=== PATIENT | male | born 1960 | race African-American/Black ===

== ENCOUNTER 2018-04-30 13:27 | Emergency (ER) | payer MEDICARE, MEDICAID ==
[~2018-04-30] VITALS: Ht 188 cm; Wt 100.0 kg
[2018-04-30 14:01] VITALS: BP 153/95
[2018-04-30] MEDS ORDERED: EYE DROPS OD (14:12)
[2018-04-30] MEDS ORDERED: HTN MEDICATION PO (14:12)
[2018-04-30] MEDS ORDERED: NAPR250T4 PO (14:12)
[2018-04-30] MEDS ORDERED: IBUP-2354 PO (14:12)
[2018-04-30] MEDS ORDERED: FLUORESCEIN SODIUM 1 MG STRIP ONE (14:47)
[2018-04-30] MEDS ORDERED: DEXTRAN 70 0.1%/HYPROMELL 0.3% 0.9 ML OPHTHALMIC SOLUTION [PF] OD ONE (16:00)
== END 2018-04-30 16:11 | disposition home or self-care (01) ==
LOC: EMS 13:28
DX: H04.121 Dry eye syndrome of right lacrimal gland (principal); I10 Essential (primary) hypertension; Z79.899 Other long term (current) drug therapy
CPT/HCPCS: 99283

== ENCOUNTER 2018-05-04 13:11 | Emergency (ER) | payer MEDICARE, MEDICAID ==
[~2018-05-04] VITALS: Ht 188 cm; Wt 100.0 kg
[~2018-05-04 13:11] MED LIST: EYE DROPS OD; HTN MEDICATION PO; IBUP-2354 PO; NAPR250T4 PO
[2018-05-04 13:24] VITALS: BP 130/67
== END 2018-05-04 13:57 | disposition home or self-care (01) ==
LOC: EMS 13:12
DX: H57.89 Other specified disorders of eye and adnexa (principal); Z76.0 Encounter for issue of repeat prescription; I10 Essential (primary) hypertension; Z79.899 Other long term (current) drug therapy
CPT/HCPCS: 99282

== ENCOUNTER 2019-06-28 08:49 | Emergency (ER) | payer OTHER ==
[~2019-06-28] VITALS: Ht 182.9 cm; Wt 110.0 kg
[~2019-06-28 08:49] MED LIST changes: +IBUP-2271 PO; -IBUP-2354 PO
[2019-06-28 09:11] VITALS: BP 140/82
== END 2019-06-28 09:27 | disposition home or self-care (01) ==
LOC: EMS 08:49
DX: J06.9 Acute upper respiratory infection, unspecified (principal); I10 Essential (primary) hypertension

== ENCOUNTER 2019-07-04 23:47 | Emergency (ER) | payer OTHER ==
[~2019-07-04] VITALS: Ht 188 cm; Wt 104.0 kg
[~2019-07-04 23:47] MED LIST changes: -IBUP-2271 PO
[2019-07-05 01:30] VITALS: BP 121/81
[2019-07-05 01:46] LABS: BASOPHILS % (AUTO) 1.5 % (0.0-2.0); HEMATOCRIT 39.9 % (41-53); HEMOGLOBIN 13.3 g/dL (13.5-17.5); LYMPHOCYTES # (AUTO) 2.3 K/uL (1.0-4.8); LYMPHOCYTES % (AUTO) 34.2 % (22.0-44.0); MEAN CORPUSCULAR HEMOGLOBIN 29.1 pg (26.0-34.0); MEAN CORPUSCULAR HGB CONC 33.4 G/dL (31.0-37.0); MEAN CORPUSCULAR VOLUME 87 fL (80-100); MONOCYTES # (AUTO) 0.7 K/uL (0.1-1.0); MONOCYTES % (AUTO) 9.7 % (2.0-9.0); NEUTROPHILS # (AUTO) 3.5 K/uL (1.8-7.7); NEUTROPHILS % (AUTO) 51.6 % (40.0-70.0); PLATELET COUNT (AUTO) 216 K/uL (150-450); RED BLOOD CELL COUNT(AUTO) 4.57 MIL/uL (4.50-5.90); RED CELL DISTRIBUTION WIDTH 13.4 % (11.5-14.5)
[2019-07-05 01:59] LABS: ANION GAP 8 mmol/L (8-16); CARBON DIOXIDE 28 mmol/L (22-29); CHLORIDE 104 mmol/L (98-107); CREATININE 0.93 mg/dL (0.60-1.30); GLOMERULAR FILTR. RATE CALC > 60 mL/min (>60); GLUCOSE,RANDOM 92 mg/dL (70-110); PROTHROMBIN TIME 10.1 SEC (9.4-11.6); SODIUM SERUM 140 mmol/L (136-145); UREA NITROGEN, BLOOD 16 mg/dL (7-18)
[2019-07-05 02:05] LABS: ALANINE AMINOTRANSFERASE 25 U/L (12-78); ALBUMIN 3.3 g/dL (3.4-5.0); ALKALINE PHOSPHATASE 55 U/L (46-116); ASPARTATE AMINOTRANSFERASE 18 U/L (15-37); BILIRUBIN,TOTAL 0.2 mg/dL (0.1-1.0)
== END 2019-07-05 02:01 | disposition home or self-care (01) ==
LOC: EMS 23:48
DX: D17.1 Benign lipomatous neoplasm of skin and subcutaneous tissue of trunk (principal); I10 Essential (primary) hypertension; Z79.899 Other long term (current) drug therapy
CPT/HCPCS: 76881